=== PATIENT | female | born 1985 ===

== ENCOUNTER 2017-08-22 11:06 | Emergency (ER) | payer OTHER ==
[2017-08-22 11:40] VITALS: BP 128/76
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
== END 2017-08-22 14:05 | disposition home or self-care (01) ==
LOC: UCEAST 11:06
DX: S16.1XXA Strain of muscle, fascia and tendon at neck level, initial encounter (principal); M79.642 Pain in left hand; R68.84 Jaw pain; V89.2XXA Person injured in unspecified motor-vehicle accident, traffic, initial encounter; Y92.9 Unspecified place or not applicable
CPT/HCPCS: 71046; 99212; G0463